=== PATIENT | male | born 1945 | race Caucasian/White ===

== ENCOUNTER 2019-07-01 10:49 | Inpatient (IN) | payer MEDICARE ==
[2019-07-01 12:10] VITALS: BP 122/71
[2019-07-01] MEDS ORDERED: ALBUTEROL SULFATE 2.5 MG/3 ML NEBU. NEB PRN (12:45)
[2019-07-01] MEDS ORDERED: methylPREDNISolone SOD SUCC PF 125 MG/2 ML VIAL. IV ONE (13:00)
--- NOTE | 2019-07-01 13:26 | HP ---
ADMIT DATE: 07/01/2019 CHIEF COMPLAINT AND HISTORY OF PRESENT ILLNESS: This 73-year-old white male is well known to me in followup in the office. The patient has been sick since last Monday. It involves a cough. He has become progressively more short of breath with minimal mucus, was seen in urgent care last , was given a Z-DEAN and prednisone, has not improved at all, has been working hard to breathe all weekend, on several occasions not sure he would get his breath at all. He was seen in the office. He was using accessory muscles of respiration, was tachypneic, diffusely wheezy with poor air exchange and the patient was admitted for failed outpatient treatment of COPD. PAST MEDICAL HISTORY: Remarkable for diverticulitis with recent resection of colon for the same. He does have a history of COPD. He has BPH, hyperlipidemia with INTOLERANCE TO STATINS, for which he takes for Repatha, has a history of some anxiety, hypertension, history of coronary artery disease, some depression. MEDICATIONS: Brought with the patient, listed on the computer and have been addressed. ALLERGIES: HE IS ALLERGIC TO SULFA AND TETRACYCLINE. SOCIAL HISTORY: He has been a smoker, does not abuse alcohol or drugs. , lives at home with his . FAMILY HISTORY: Noncontributory. REVIEW OF SYSTEMS: Remarkable for the cough, fevers, chills, shortness of breath, weakness, anorexia. PHYSICAL EXAMINATION: GENERAL: He is a well-developed, well-nourished white male, who appears short of breath at rest. VITAL SIGNS: Stable. He is afebrile. He is satting at 93%, but breathing at a rate in the 20s and using accessory muscles of respirations. CHEST: Reveals decreased breath sounds bilaterally with diffuse wheezing. HEART: Slightly tachycardic, regular. ABDOMEN: Soft, nontender, without hepatosplenomegaly or masses. EXTREMITIES: Without cyanosis, clubbing, edema. NEUROLOGIC: He is intact. IMPRESSION: Exacerbation of chronic obstructive pulmonary disease with failed outpatient treatment. PLAN: The patient has been admitted. He will be treated with IV fluids, IV antibiotics, pulmonary toilet, IV steroids. Labs will be checked. Pulmonary will be consulted and the patient will be monitored, managed and treated appropriately. CHRISTIANE CLEVELAND MD DR: Fish JOB#: [id number] / [id number]
[2019-07-01] MEDS: IV 1/2 NORMAL SALINE 1,000 ML IV SCH (13:32)
[2019-07-01] MEDS: cefTRIAXone IV Push 1 GM VIAL. IVP SCH (13:37)
[2019-07-01] MEDS: AZITHROMYCIN 500 MG in IV NORMAL SALINE 250ML 250 ML IV SCH (13:38)
--- NOTE | 2019-07-01 14:10 | RAD ---
CHEST AP ONLY Clinical Indication: COPD exacerbation Comparison: None. Findings: Portable upright frontal view of the chest was obtained. The cardiomediastinal silhouette is normal. No dense consolidation. Subtle nodular interstitial thickening of the lung [place] noted and may be chronic. There is no pneumothorax. No pleural effusion is appreciated. Minimal left costophrenic angle blunting is nonspecific. No acute bone abnormality. IMPRESSION: No definite acute cardiopulmonary process. Electronically signed by: Thomas Chung MD (07/01/2019 2:07 PM) [facility]
[2019-07-01 14:32] LABS: BASO % 0 % (0-3); EOS % 0 % (0-3); HEMATOCRIT 41.6 % (39.0-53.0); HEMOGLOBIN 14.2 g/dL (13.0-17.5); LYMPH % 14 % (24-48); MEAN CORPUSCULAR HEMOGLOBIN 31 pg (25-35); MEAN CORPUSCULAR HGB CONC 34 g/dL (31-37); MEAN CORPUSCULAR VOLUME 92 fL (79-100); MONO # 0.5 x10^3/uL (0.0-1.1); MONO % 4 % (0-9); NEUT # 11.2 x10^3/uL (1.8-7.7); NEUT % 82 % (31-73); PLATELET COUNT 296 x10^3/uL (140-400); RED BLOOD COUNT 4.52 x10^6/uL (4.30-5.70); WHITE BLOOD COUNT 13.8 x10^3/uL (4.0-11.0)
[2019-07-01 14:49] LABS: ALBUMIN 3.6 g/dL (3.4-5.0); CALCIUM 9.2 mg/dL (8.5-10.1); CREATININE 1.1 mg/dL (0.7-1.3); GFR 65.8; TOTAL BILIRUBIN 0.5 mg/dL (0.2-1.0); TOTAL PROTEIN 7.2 g/dL (6.4-8.2)
[2019-07-01 14:51] LABS: POTASSIUM 5.3 mmol/L (3.5-5.1)
[2019-07-01 14:53] VITALS: BP 129/59
[2019-07-01] MEDS ORDERED: TAMS0.4C97 PO (16:10)
[2019-07-01] MEDS ORDERED: AMLO5TAB10 PO (16:10)
[2019-07-01] MEDS ORDERED: EZET10TA20 PO (16:10)
[2019-07-01] MEDS ORDERED: CARV25TA2 PO (16:10)
[2019-07-01] MEDS ORDERED: CLOP75TA PO (16:10)
[2019-07-01] MEDS ORDERED: FOLI1TAB16 PO (16:10)
[2019-07-01] MEDS ORDERED: EVOL140S SQ (16:10)
[2019-07-01] MEDS ORDERED: TRAZ-118 PO (16:10)
[2019-07-01] MEDS ORDERED: ASPI325T8 PO (16:10)
[2019-07-01] MEDS ORDERED: SERT50TA8 PO (16:10)
[2019-07-01] MEDS ORDERED: OMEG1CAP6 PO (16:11)
[2019-07-01] MEDS ORDERED: ACET600C3 PO (16:11)
[2019-07-01] MEDS: CARVEDILOL 12.5 MG TABLET. PO SCH (17:00)
[2019-07-01] MEDS: methylPREDNISolone SOD SUCC PF 40 MG/ML VIAL. IV SCH ×2 (17:11→21:37)
[2019-07-01] MEDS: ALBUTEROL SULFATE 2.5 MG/3 ML NEBU. NEB SCH (19:46)
[2019-07-01 19:51] VITALS: BP 124/59
[2019-07-01] MEDS ORDERED: traZODone 50 MG TABLET. PO SCH (21:00)
[2019-07-01] MEDS ORDERED: traZODone 50 MG TABLET. PO ONE (22:00)
[2019-07-01 23:12] VITALS: BP 129/59
[2019-07-02] MEDS: IV 1/2 NORMAL SALINE 1,000 ML IV SCH ×2 (03:21→18:04)
[2019-07-02 03:46] VITALS: BP 140/67
[2019-07-02] MEDS: methylPREDNISolone SOD SUCC PF 40 MG/ML VIAL. IV SCH ×3 (06:20→21:01)
[2019-07-02 07:00] VITALS: BP 142/59
[2019-07-02] MEDS: ALBUTEROL SULFATE 2.5 MG/3 ML NEBU. NEB SCH (07:42)
[2019-07-02] MEDS: CARVEDILOL 12.5 MG TABLET. PO SCH ×2 (08:00→17:00)
[2019-07-02] MEDS ORDERED: OMEGA-3 FATTY ACIDS/FISH OIL 1,000 MG CAPSULE. PO SCH (09:00)
[2019-07-02] MEDS ORDERED: TAMSULOSIN 0.4 MG CAP.ER.24H. PO SCH (09:00)
[2019-07-02] MEDS ORDERED: SERTRALINE 50 MG TABLET. PO SCH (09:00)
[2019-07-02] MEDS ORDERED: amLODIPine BESYLATE 5 MG TABLET PO SCH (09:00)
[2019-07-02] MEDS ORDERED: EZETIMIBE 10 MG TABLET. PO SCH (09:00)
[2019-07-02] MEDS ORDERED: CLOPIDOGREL BISULFATE 75 MG TABLET PO SCH (09:00)
[2019-07-02] MEDS ORDERED: ACETYLCYSTEINE PO SCH (09:00)
[2019-07-02] MEDS: FOLIC ACID 1 MG TABLET. PO SCH (09:23)
[2019-07-02] MEDS: ASPIRIN 325 MG TABLET PO SCH (09:23)
--- NOTE | 2019-07-02 09:44 | CONS ---
DATE OF CONSULTATION: PULMONARY CONSULTATION ATTENDING PHYSICIAN: Dr. Soares REASON FOR CONSULTATION: Dyspnea. HISTORY OF PRESENT ILLNESS: The patient is a 73-year-old, who has a tobacco use for about 55 years. He presented to the hospital with complaint of shortness of breath, this started on Monday, went to urgent care on , was given Z-DEAN and prednisone, but he did not improve and continued to have increasing shortness of breath. He was brought into the Emergency Room after he was seen in the office and was using accessory muscles of respiration, he was tachypneic and diffusely wheezing. The patient has been hospitalized. He is mildly better. He has a cough, which has been dry. No fever, no chills, no chest pains, no headaches, no nausea, vomiting, no diarrhea. He said he has some weight loss after his abdominal surgery for diverticulitis. The patient still smokes 1 pack per day. His chest x-ray did not reveal any acute infiltrates. There was evidence of emphysema. PAST MEDICAL HISTORY: Significant for history of diverticulitis with recent resection of colon for the same reason, history of COPD, history of BPH, hyperlipidemia, history of anxiety, hypertension, coronary artery disease, and depression. PAST SURGICAL HISTORY: No recent surgery. ALLERGIES: SULFA AND TETRACYCLINE. SOCIAL HISTORY: Smoker for 55 years, still smokes a pack a day. FAMILY HISTORY: Noncontributory to lungs. REVIEW OF SYSTEMS: Twelve-point system obtained. Pertinent positives discussed in my present illness, otherwise noncontributory. All systems that were negative were reviewed as well. MEDICATIONS: All reviewed as listed in the MRAD. PHYSICAL EXAMINATION: VITAL SIGNS: Reviewed. Blood pressure is stable, pulse ox 90% on 2 liters, afebrile. HEENT: Sclerae nonicteric. NECK: Supple. LUNGS: With few wheezes posteriorly. CARDIOVASCULAR: Regular rate. ABDOMEN: Soft. EXTREMITIES: With no pitting edema. LABORATORY DATA: Reviewed. White cell count 13.8, hemoglobin 14.2, platelets are 296. BUN 22, creatinine 1.1. IMPRESSION: 1. Dyspnea with acute hypoxic respiratory failure secondary to acute exacerbation of chronic obstructive pulmonary disease and acute bronchitis. 2. Acute bronchitis. 3. A 55 years of tobacco use, suspect severe chronic obstructive pulmonary disease. The patient still smokes a pack a day. RECOMMENDATIONS: 1. Smoking cessation counseling provided. He wants to try quitting cigarettes. 2. Add DuoNeb instead of just albuterol only. 4. Add Pulmicort. 5. IV Solu-Medrol with gradual taper. 6. Continue present antibiotic azithromycin. 7. PFTs as an outpatient. 8. Wean off oxygen. 9. Discussed with RN. DEANGELO PARKER MD DR: LAKSHMI/laney JOB#: [id number] / [id number]
[2019-07-02 10:54] VITALS: BP 135/59
[2019-07-02] MEDS: IPRATRPIUM/ALBUTEROL 0.5/2.5MG 3 ML NEBU. NEB SCH ×3 (11:31→19:58)
[2019-07-02] MEDS: AZITHROMYCIN 500 MG in IV NORMAL SALINE 250ML 250 ML IV SCH (12:32)
[2019-07-02] MEDS: cefTRIAXone IV Push 1 GM VIAL. IVP SCH (12:33)
[2019-07-02] MEDS ORDERED: POLYETHYLENE GLYCOL 3350 17 GM PACKET. ONE (14:42)
[2019-07-02 14:44] VITALS: BP 125/59
[2019-07-02] MEDS: POLYETHYLENE GLYCOL 3350 17 GM PACKET. PO SCH (14:48)
[2019-07-02] MEDS ORDERED: LACTULOSE 20 GM/30 ML SOLUTION. PO PRN (15:15)
--- NOTE | 2019-07-02 18:02 | PDOC ---
GENERAL General: vss and afebrile. awake and alert and minimal improvement in sob to date. chest with decreased breath sounds and diffuse expiratory wheezes, heart regular, abdomen benign, O2 sats ok. pulmonology help appreciated. cxr without acute disease. WBC 13.8K with left shift on admission and iv antibiotics ongoing. continue present. VITAL SIGNS/I&O Vital Signs/I&O: Vital Signs Date Time Temp Pulse Resp B/P (MAP) Pulse Ox O2 Delivery O2 Flow Rate FiO2 07/02/19 15:24 93 Room Air 07/02/19 14:44 97.9 61 17 125/59 (81) 97.9 07/02/19 08:00 2.0 I & O 07/01/19 07/01/19 07/02/19 15:00 23:00 07:00 Intake Total 360 ml 250 ml Balance 360 ml 250 ml ALLERGIES Allergies: Allergies Coded Allergies Type Severity Reaction Last Updated Verified Sulfa (Sulfonamide Antibiotics) Allergy Mild 07/01/19 Yes Tetracyclines Allergy Mild 07/01/19 Yes MEDS Medications: Current Medications Medications (Trade) Dose Ordered Sig/Peyton Route PRN Reason Start Time Stop Time Status Last Admin Dose Admin Aspirin (Laney Aspirin) 325 mg DAILY PO 07/02/19 09:00 07/02/19 09:26 Folic Acid (Folic Acid) 1 mg DAILY PO 07/02/19 09:00 07/02/19 09:26 Trazodone HCl (Desyrel) 50 mg HS PO 07/01/19 21:00 07/02/19 06:55 DC 07/01/19 21:38 Albuterol Sulfate (Ventolin Neb Soln) 2.5 mg RTQID NEB 07/01/19 20:00 07/02/19 09:31 DC 07/02/19 07:42 Trazodone HCl (Desyrel) 25 mg 1X ONCE PO 07/01/19 22:00 07/01/19 22:01 DC 07/01/19 22:04 Albuterol/ Ipratropium (Duoneb) 3 ml RTQID NEB 07/02/19 12:00 07/02/19 15:23 Polyethylene Glycol (miraLAX PACKET) 17 gm DAILY PO 07/03/19 09:00 07/02/19 14:48 CHRISTIANE CLEVELAND MD Jul 02, 2019 18:02
[2019-07-02 19:50] VITALS: BP 141/93
[2019-07-02] MEDS: BUDESONIDE 0.5 MG/2 ML NEBU. NEB SCH (19:58)
[2019-07-02] MEDS ORDERED: LACTOBACILLUS RHAMNOSUS GG 1 CAPSULE. PO SCH (21:00)
[2019-07-02] MEDS: traZODone 50 MG TABLET. PO SCH (21:01)
[2019-07-02] MEDS: TAMSULOSIN 0.4 MG CAP.ER.24H. PO SCH (21:01)
[2019-07-02] MEDS: EZETIMIBE 10 MG TABLET. PO SCH (21:01)
[2019-07-02] MEDS: amLODIPine BESYLATE 5 MG TABLET PO SCH (21:02)
[2019-07-02] MEDS: LACTOBACILLUS RHAMNOSUS GG 1 CAPSULE. PO SCH (21:02)
[2019-07-02] MEDS: OMEGA-3 FATTY ACIDS/FISH OIL 1,000 MG CAPSULE. PO SCH (21:02)
[2019-07-02] MEDS: CLOPIDOGREL BISULFATE 75 MG TABLET PO SCH (21:03)
[2019-07-02] MEDS: SERTRALINE 50 MG TABLET. PO SCH (21:03)
[2019-07-02 23:41] VITALS: BP 132/91
[2019-07-03] MEDS: IV 1/2 NORMAL SALINE 1,000 ML IV SCH ×2 (04:45→13:39)
[2019-07-03 07:00] VITALS: BP 139/66
[2019-07-03] MEDS: methylPREDNISolone SOD SUCC PF 40 MG/ML VIAL. IV SCH ×3 (07:03→20:49)
[2019-07-03] MEDS: IPRATRPIUM/ALBUTEROL 0.5/2.5MG 3 ML NEBU. NEB SCH ×4 (07:53→19:34)
[2019-07-03] MEDS: BUDESONIDE 0.5 MG/2 ML NEBU. NEB SCH ×2 (07:53→19:34)
[2019-07-03] MEDS ORDERED: PSYL660P18 PO (08:05)
[2019-07-03] MEDS: LACTOBACILLUS RHAMNOSUS GG 1 CAPSULE. PO SCH ×2 (08:39→20:37)
[2019-07-03] MEDS: PSYLLIUM HUSK (SUGAR FREE) 1 PKT PACKET PO SCH ×2 (08:39→20:37)
[2019-07-03] MEDS: CARVEDILOL 12.5 MG TABLET. PO SCH ×2 (08:39→16:39)
[2019-07-03] MEDS: ASPIRIN 325 MG TABLET PO SCH (08:39)
[2019-07-03] MEDS: FOLIC ACID 1 MG TABLET. PO SCH (08:39)
--- NOTE | 2019-07-03 10:09 | PDOC ---
PULMONARY PROGRESS NOTES Subjective NO SOA Vitals Vital Signs Date Time Temp Pulse Resp B/P (MAP) Pulse Ox O2 Delivery O2 Flow Rate FiO2 07/03/19 08:39 61 139/66 07/03/19 08:00 Room Air 07/03/19 07:56 90 07/03/19 07:00 98.4 17 98.4 07/02/19 20:00 2.0 General: Alert, No acute distress Lungs: Clear Cardiovascular: S1 Abdomen: Soft Neuro Exam: Alert Extremities: No Edema Skin: Warm Labs Laboratory Tests Test 07/01/19 14:24 White Blood Count 13.8 x10^3/uL (4.0-11.0) Red Blood Count 4.52 x10^6/uL (4.30-5.70) Hemoglobin 14.2 g/dL (13.0-17.5) Hematocrit 41.6 % (39.0-53.0) Mean Corpuscular Volume 92 fL (79-100) Mean Corpuscular Hemoglobin 31 pg (25-35) Mean Corpuscular Hemoglobin Concent 34 g/dL (31-37) Red Cell Distribution Width 13.0 % (11.5-14.5) Platelet Count 296 x10^3/uL (140-400) Neutrophils (%) (Auto) 82 % (31-73) Lymphocytes (%) (Auto) 14 % (24-48) Monocytes (%) (Auto) 4 % (0-9) Eosinophils (%) (Auto) 0 % (0-3) Basophils (%) (Auto) 0 % (0-3) Neutrophils # (Auto) 11.2 x10^3/uL (1.8-7.7) Lymphocytes # (Auto) 2.0 x10^3/uL (1.0-4.8) Monocytes # (Auto) 0.5 x10^3/uL (0.0-1.1) Eosinophils # (Auto) 0.0 x10^3/uL (0.0-0.7) Basophils # (Auto) 0.0 x10^3/uL (0.0-0.2) Sodium Level 134 mmol/L (136-145) Potassium Level 5.3 mmol/L (3.5-5.1) Chloride Level 98 mmol/L (98-107) Carbon Dioxide Level 30 mmol/L (21-32) Anion Gap 6 (6-14) Blood Urea Nitrogen 22 mg/dL (8-26) Creatinine 1.1 mg/dL (0.7-1.3) Estimated GFR (Cockcroft-Gault) 65.8 BUN/Creatinine Ratio 20 (6-20) Glucose Level 133 mg/dL (70-99) Calcium Level 9.2 mg/dL (8.5-10.1) Total Bilirubin 0.5 mg/dL (0.2-1.0) Aspartate Amino Transf (AST/SGOT) 29 U/L (15-37) Alanine Aminotransferase (ALT/SGPT) 28 U/L (16-63) Alkaline Phosphatase 81 U/L (46-116) Total Protein 7.2 g/dL (6.4-8.2) Albumin 3.6 g/dL (3.4-5.0) Albumin/Globulin Ratio 1.0 (1.0-1.7) Medications Active Scripts Medications Dose Route/Sig Max Daily Dose Days Date Category Dose Instructions Metamucil (Psyllium Husk) 660 Gm Powder 660 Gm PO BID 07/03/19 Reported U-Alodva-Z-Cysteine (Acetylcysteine) 600 Mg Capsule 750 Mg PO DAILY 07/01/19 Reported Fish Oil 1,000 Mg Capsule ([place]-3 Fatty Acids/Fish Oil) 1 Each Capsule 1 Each PO HS 07/01/19 Reported Aspirin 325 Mg Tablet 1 Tab PO DAILY 07/01/19 Reported Folic Acid 1 Mg Tablet 1 Tab PO DAILY 07/01/19 Reported Trazodone Hcl 50 Mg Tablet 75 Mg PO HS 07/01/19 Reported pt states he takes 75mg at night, prescription bottle states 1-2 tabs at bedtime. Flomax (Tamsulosin Hcl) 0.4 Mg Cap.er.24h 0.4 Mg PO HS 07/01/19 Reported Sertraline Hcl 50 Mg Tablet 50 Mg PO HS 07/01/19 Reported Amlodipine Besylate 5 Mg Tablet 5 Mg PO HS 07/01/19 Reported Zetia (Ezetimibe) 10 Mg Tablet 10 Mg PO HS 07/01/19 Reported Clopidogrel (Clopidogrel Bisulfate) 75 Mg Tablet 75 Mg PO HS 07/01/19 Reported Carvedilol 25 Mg Tablet 25 Mg PO BIDWMEALS 07/01/19 Reported Repatha Syringe (Evolocumab) 140 Mg/1 Ml Syringe 140 Mg SQ Q2WKS 07/01/19 Reported Impression . 1. Dyspnea with acute hypoxic respiratory failure secondary to acute exacerbation of chronic obstructive pulmonary disease and acute bronchitis. 2. Acute bronchitis. 3. A 55 years of tobacco use, suspect severe chronic obstructive pulmonary disease. The patient still smokes a pack a day. Plan . 1. Smoking cessation counseling provided. He wants to try quitting cigarettes. 2. DuoNeb instead of just albuterol only. 4. Pulmicort. 5. IV Solu-Medrol with gradual taper. 6. Continue present antibiotic azithromycin. 7. PFTs as an outpatient. 8. Wean off oxygen. 9. Discussed with RN./ POSSIBLE DC IN DEANGELO BOLIVAR MD Jul 03, 2019 10:09
[2019-07-03 10:46] VITALS: BP 139/80
[2019-07-03] MEDS: cefTRIAXone IV Push 1 GM VIAL. IVP SCH (13:38)
[2019-07-03] MEDS: AZITHROMYCIN 500 MG in IV NORMAL SALINE 250ML 250 ML IV SCH (13:39)
[2019-07-03 15:15] VITALS: BP 136/64
--- NOTE | 2019-07-03 18:37 | PDOC ---
GENERAL General: vss and afebrile. some better this am. chest with better air movement and less wheezes, heart regular, abdomen benign. continue present care and await clearing. pulmonary help appreciated. VITAL SIGNS/I&O Vital Signs/I&O: Vital Signs Date Time Temp Pulse Resp B/P (MAP) Pulse Ox O2 Delivery O2 Flow Rate FiO2 07/03/19 16:39 71 136/64 07/03/19 15:43 92 Room Air 07/03/19 15:15 97.8 16 97.8 07/02/19 20:00 2.0 I & O 07/02/19 07/02/19 07/03/19 15:00 23:00 07:00 Intake Total 600 ml 550 ml 100 ml Balance 600 ml 550 ml 100 ml ALLERGIES Allergies: Allergies Coded Allergies Type Severity Reaction Last Updated Verified Sulfa (Sulfonamide Antibiotics) Allergy Mild 07/01/19 Yes Tetracyclines Allergy Mild 07/01/19 Yes MEDS Medications: Current Medications Medications (Trade) Dose Ordered Sig/Peyton Route PRN Reason Start Time Stop Time Status Last Admin Dose Admin Amlodipine Besylate (Norvasc) 5 mg HS PO 07/02/19 21:00 07/02/19 21:04 Clopidogrel Bisulfate (Plavix) 75 mg HS PO 07/02/19 21:00 07/02/19 21:04 EZETIMIBE (Zetia) 10 mg HS PO 07/02/19 21:00 07/02/19 21:04 Fish Oil (Fish Oil) 1,000 mg HS PO 07/02/19 21:00 07/02/19 21:04 Sertraline HCl (Zoloft) 50 mg HS PO 07/02/19 21:00 07/02/19 21:04 Tamsulosin HCl (Flomax) 0.4 mg HS PO 07/02/19 21:00 07/02/19 21:03 Trazodone HCl (Desyrel) 75 mg HS PO 07/02/19 21:00 07/02/19 21:03 Budesonide (Pulmicort) 0.5 mg RTBID NEB 07/02/19 20:00 07/03/19 07:54 Lactobacillus Rhamnosus (Culturelle) 1 cap BID PO 07/02/19 21:00 07/03/19 08:39 Polyethylene Glycol (miraLAX PACKET) 17 gm DAILY PO 07/03/19 09:00 07/02/19 14:48 Psyllium Hydrophilic Mucilloid (Metamucil Fiber Packet) 1 pkt BID PO 07/03/19 09:00 07/03/19 08:39 CHRISTIANE CLEVELAND MD Jul 03, 2019 18:36
[2019-07-03 19:47] VITALS: BP 158/59
[2019-07-03] MEDS: amLODIPine BESYLATE 5 MG TABLET PO SCH (20:37)
[2019-07-03] MEDS: EZETIMIBE 10 MG TABLET. PO SCH (20:37)
[2019-07-03] MEDS: CLOPIDOGREL BISULFATE 75 MG TABLET PO SCH (20:37)
[2019-07-03] MEDS: SERTRALINE 50 MG TABLET. PO SCH (20:37)
[2019-07-03] MEDS: OMEGA-3 FATTY ACIDS/FISH OIL 1,000 MG CAPSULE. PO SCH (20:37)
[2019-07-03] MEDS: TAMSULOSIN 0.4 MG CAP.ER.24H. PO SCH (20:37)
[2019-07-03] MEDS: traZODone 50 MG TABLET. PO SCH (20:38)
[2019-07-03] MEDS: CEFDINIR 300 MG CAPSULE PO SCH (20:42)
[2019-07-03 23:18] VITALS: BP 141/66
[2019-07-04 03:13] VITALS: BP 135/87
[2019-07-04] MEDS: methylPREDNISolone SOD SUCC PF 40 MG/ML VIAL. IV SCH (05:30)
[2019-07-04] MEDS: IV 1/2 NORMAL SALINE 1,000 ML IV SCH (05:34)
[2019-07-04 07:00] VITALS: BP 119/62
[2019-07-04] MEDS: BUDESONIDE 0.5 MG/2 ML NEBU. NEB SCH (07:18)
[2019-07-04] MEDS: IPRATRPIUM/ALBUTEROL 0.5/2.5MG 3 ML NEBU. NEB SCH ×3 (07:19→15:27)
[2019-07-04] MEDS: CEFDINIR 300 MG CAPSULE PO SCH (08:21)
[2019-07-04] MEDS: ASPIRIN 325 MG TABLET PO SCH (08:21)
[2019-07-04] MEDS: CARVEDILOL 12.5 MG TABLET. PO SCH (08:21)
[2019-07-04] MEDS: FOLIC ACID 1 MG TABLET. PO SCH (08:22)
[2019-07-04] MEDS: LACTOBACILLUS RHAMNOSUS GG 1 CAPSULE. PO SCH (08:22)
[2019-07-04] MEDS ORDERED: AZITHROMYCIN 250 MG TABLET. PO SCH (09:00)
[2019-07-04] MEDS: PSYLLIUM HUSK (SUGAR FREE) 1 PKT PACKET PO SCH (10:27)
[2019-07-04] MEDS: POLYETHYLENE GLYCOL 3350 17 GM PACKET. PO SCH (10:27)
[2019-07-04 11:00] VITALS: BP 121/77
--- NOTE | 2019-07-04 12:46 | PDOC ---
PULMONARY PROGRESS NOTES Subjective NO SOA Vitals Vital Signs Date Time Temp Pulse Resp B/P (MAP) Pulse Ox O2 Delivery O2 Flow Rate FiO2 07/04/19 11:09 Room Air 07/04/19 11:00 98.3 71 16 121/77 (92) 93 98.3 07/03/19 19:47 2.0 General: Alert, No acute distress Lungs: Clear Cardiovascular: S1 Abdomen: Soft Neuro Exam: Alert Extremities: No Edema Skin: Warm Medications Active Scripts Medications Dose Route/Sig Max Daily Dose Days Date Category Dose Instructions Metamucil (Psyllium Husk) 660 Gm Powder 660 Gm PO BID 07/03/19 Reported O-Kyinpr-B-Cysteine (Acetylcysteine) 600 Mg Capsule 750 Mg PO DAILY 07/01/19 Reported Fish Oil 1,000 Mg Capsule ([place]-3 Fatty Acids/Fish Oil) 1 Each Capsule 1 Each PO HS 07/01/19 Reported Aspirin 325 Mg Tablet 1 Tab PO DAILY 07/01/19 Reported Folic Acid 1 Mg Tablet 1 Tab PO DAILY 07/01/19 Reported Trazodone Hcl 50 Mg Tablet 75 Mg PO HS 07/01/19 Reported pt states he takes 75mg at night, prescription bottle states 1-2 tabs at bedtime. Flomax (Tamsulosin Hcl) 0.4 Mg Cap.er.24h 0.4 Mg PO HS 07/01/19 Reported Sertraline Hcl 50 Mg Tablet 50 Mg PO HS 07/01/19 Reported Amlodipine Besylate 5 Mg Tablet 5 Mg PO HS 07/01/19 Reported Zetia (Ezetimibe) 10 Mg Tablet 10 Mg PO HS 07/01/19 Reported Clopidogrel (Clopidogrel Bisulfate) 75 Mg Tablet 75 Mg PO HS 07/01/19 Reported Carvedilol 25 Mg Tablet 25 Mg PO BIDWMEALS 07/01/19 Reported Repatha Syringe (Evolocumab) 140 Mg/1 Ml Syringe 140 Mg SQ Q2WKS 07/01/19 Reported Impression . 1. Dyspnea with acute hypoxic respiratory failure secondary to acute exacerbation of chronic obstructive pulmonary disease and acute bronchitis. 2. Acute bronchitis. 3. A 55 years of tobacco use, suspect severe chronic obstructive pulmonary disease. The patient still smokes a pack a day. Plan . 1. Smoking cessation counseling provided. He wants to try quitting cigarettes. 2. DuoNeb 4. Pulmicort. 5. change to po steroid taper 6. Continue present antibiotic azithromycin. 7. PFTs as an outpatient. 8. Wean off oxygen. 9. Discussed with RN./ DC home today DEANGELO PARKER MD Jul 04, 2019 12:46
--- NOTE | 2019-07-04 13:18 | DS ---
DATE OF DISCHARGE: 07/04/2019 PRIMARY DIAGNOSES: Exacerbation of chronic obstructive pulmonary disease with bronchitis and shortness of breath. ADDITIONAL DIAGNOSES: Hyperlipidemia, benign prostatic hyperplasia, coronary artery disease, hypertension. CHIEF COMPLAINT AND HISTORY OF PRESENT ILLNESS: This is a 73-year-old white male well known to me from followup in the office. The patient had been sick since Monday prior cough. He became progressively more short of breath with minimal mucus, seen in urgent care last , given a Z-DEAN and prednisone, but not improved at all, had been working very hard to breathe get his breath at all. He was seen in the office on the day of admission using accessory muscles of respiration, was tachypneic, diffusely wheezy with poor air exchange, failed outpatient treatment of COPD. SUMMARY OF STAY: The patient was admitted and treated with IV antibiotics, IV fluids, pulmonary toilet, IV steroids, but gradual improvement back to his baseline by the day of discharge. Pulmonary was going to send him on p.o. steroid taper and antibiotics for a few more days at the time of discharge, but I am not sure what those at the time of this dictation. DISPOSITION: The patient is discharged to home. DIET: Regular. ACTIVITY: As tolerated, office in 2 weeks. DISCHARGE MEDICATIONS: Listed on the med rec and have been addressed. CHRISTIANE CLEVELAND MD DR: FABRIZIO/laney JOB#: [id number] / [id number]
[2019-07-04] MEDS ORDERED: AZIT250T6 PO (14:39)
[2019-07-04] MEDS ORDERED: PRED-220 PO (14:39)
[2019-07-05] MEDS ORDERED: predniSONE 10 MG TABLET PO SCH (09:00)
[2019-07-15] MEDS ORDERED: NON FORMULARY ITEM (Evolocumab (Repatha Syringe) 140 MG) SQ SCH (09:00)
== END 2019-07-04 15:43 | disposition home or self-care (01) | DRG 189 ==
LOC: 6 SOUTH 11:39
PROVIDERS: ADMIT Family Medicine; ATTEND Family Medicine
DX: J96.01 Acute respiratory failure with hypoxia (principal); J20.9 Acute bronchitis, unspecified; J43.9 Emphysema, unspecified; F41.9 Anxiety disorder, unspecified; N40.0 Benign prostatic hyperplasia without lower urinary tract symptoms; E78.5 Hyperlipidemia, unspecified; F17.210 Nicotine dependence, cigarettes, uncomplicated; I10 Essential (primary) hypertension; I25.10 Atherosclerotic heart disease of native coronary artery without angina pectoris; Z71.6 Tobacco abuse counseling
CPT/HCPCS: 36415; 71045; 80053; 85025; 94640; 94760; J0456; J0696; J2920; J2930; J7050; J7613; J7620; J7626; Q0144; G0378; J7030

== ENCOUNTER → 2021-05-13 | Outpatient (CLI) | payer MEDICARE ==
[~2021-05-13] MED LIST: ACET600C3 PO; AMLO-186 PO; ASPI325T8 PO; AZIT250T6 PO; CARV25TA2 PO; CLOP75TA PO; EVOL140S2 SQ; EZET10TA20 PO; FOLI1TAB16 PO; OMEG1CAP6 PO; PRED-220 PO; PSYL660P18 PO; SERT-267 PO; TAMS0.4C97 PO; TRAZ-118 PO
[2021-05-13 13:26] LABS: BASO # 0.1 x10^3/uL (0.0-0.2); BASO % 1 % (0-3); EOS # 0.2 x10^3/uL (0.0-0.7); EOS % 2 % (0-3); HEMOGLOBIN 14.6 g/dL (13.0-17.5); LYMPH # 2.6 x10^3/uL (1.0-4.8); LYMPH % 26 % (24-48); MEAN CORPUSCULAR HEMOGLOBIN 32 pg (25-35); MEAN CORPUSCULAR HGB CONC 34 g/dL (31-37); MEAN CORPUSCULAR VOLUME 94 fL (79-100); MONO # 0.9 x10^3/uL (0.0-1.1); MONO % 9 % (0-9); NEUT # 6.3 x10^3/uL (1.8-7.7); NEUT % 62 % (31-73); PLATELET COUNT 297 x10^3/uL (140-400); RED BLOOD COUNT 4.57 x10^6/uL (4.30-5.70); RED CELL DISTRIBUTION WIDTH 13.2 % (11.5-14.5); WHITE BLOOD COUNT 10.1 x10^3/uL (4.0-11.0)
[2021-05-13 13:34] LABS: ALBUMIN 3.4 g/dL (3.4-5.0); C-REACTIVE PROTEIN 1.3 mg/L (0-3.3); CALCIUM 8.8 mg/dL (8.5-10.1); CREATININE 1.1 mg/dL (0.7-1.3); GFR 65.4; POTASSIUM 3.9 mmol/L (3.5-5.1); TOTAL BILIRUBIN 0.6 mg/dL (0.2-1.0); TOTAL PROTEIN 6.7 g/dL (6.4-8.2)
== END ==
LOC: LAB 12:58
PROVIDERS: ATTEND Internal Medicine Gastroenterology
DX: R63.4 Abnormal weight loss (principal)
CPT/HCPCS: 36415; 80053; 84443; 85025; 86140

== ENCOUNTER → 2021-05-19 | Outpatient (CLI) | payer MEDICARE ==
[~2021-05-19] MED LIST changes: +IOHEXOL 240 MG/ML 50ML VIAL. PO ONE; +IOHEXOL 300 MG/ML 100ML VIAL. IV ONE
--- NOTE | 2021-05-19 15:12 | KCIC ---
INDICATION: Reason: Weight loss. Diarrhea. / Spl. Instructions: 90mL Omni 300 / History: Diarrhea 3 m onths, hx.diverticulitis w/colon resection,GB and appy removed.. COMPARISON: None. TECHNIQUE: Axial CT images obtained through the abdomen and pelvis with contrast. One or more of the following individualized dose reduction techniques were utilized for this examinat ion: 1. Automated exposure control; 2. Adjustment of the mA and/or kV according to patient size; 3 . Use of iterative reconstruction technique. FINDINGS: multifocal plaque throughout the vasculature. This includes both hard and soft plaque. Ectasia infrarenal abdominal aorta measuring up to 30 mm. Postcholecystectomy changes. Prominence of intrahepatic bile ducts which is commonly seen postoperati vely. Focus of low density within the right lobe the liver medially measuring up to 18 mm. No peripancreatic fluid collection. Spleen unremarkable. Prominence of the bilateral extrarenal pelvis. Urinary bladder wall appears thickened. Prostate enlarged. No dilated loops of bowel to suggest obstruction. The patient has a reported history of appendectomy. Postoperative appearance of the bowel. Suspected left lower rib fracture at the left eighth rib. Degenerative changes the spine with multilevel central canal and neural foraminal stenosis. Osseous demineralization. IMPRESSION: * No evidence of bowel obstruction. * Focus of low density within the right lobe the liver. This could be secondary to causes such as fo sandy fatty infiltration but a liver mass is not excluded and if further evaluation is desired liver pr otocol MRI could further assess. * Left eighth rib fracture * Severe calcific atherosclerosis. * There is some mild thickening of the wall the urinary bladder. Could be related to causes such as chronic partial bladder outlet obstruction from enlarged prostate but would correlate with symptoms a nd lab markers to ensure there is not a pathologic cause such as a mass or cystitis Electronically signed by: Melquiades Fischer MD (05/19/2021 3:10 PM) [id number]
--- NOTE | 2021-05-19 17:06 | KCIC ---
XR CHEST 2V History: Reason: Weight loss, SOA, COPD, smoker 55 yrs., 1pk/day. / Spl. Instructions: / History: Comparison: July 01, 2019 Findings: Hyperinflation with emphysematous changes. No consolidation or pleural effusion. No pneumothorax. Impression: 1. Hyperinflation with emphysematous changes. No new consolidation. Electronically signed by: Paras Matthews DO (05/19/2021 5:04 PM) [id number]
== END ==
LOC: KCIC CT 13:06
PROVIDERS: ATTEND Internal Medicine Gastroenterology
DX: J43.9 Emphysema, unspecified (principal); J98.11 Atelectasis; K76.89 Other specified diseases of liver; I77.811 Abdominal aortic ectasia; I70.90 Unspecified atherosclerosis; M47.819 Spondylosis without myelopathy or radiculopathy, site unspecified; M48.00 Spinal stenosis, site unspecified; S22.32XA Fracture of one rib, left side, initial encounter for closed fracture; Z90.49 Acquired absence of other specified parts of digestive tract; X58.XXXA Exposure to other specified factors, initial encounter; Y93.89 Activity, other specified; Y92.89 Other specified places as the place of occurrence of the external cause; Y99.8 Other external cause status
CPT/HCPCS: 71046; 74177; Q9966; Q9967

== ENCOUNTER → 2021-06-18 | Outpatient (CLI) | payer MEDICARE ==
[~2021-06-18] MED LIST changes: +GADOTERATE 5 MMOL/10ML VIAL. IVP ONE; -IOHEXOL 240 MG/ML 50ML VIAL. PO ONE; -IOHEXOL 300 MG/ML 100ML VIAL. IV ONE
--- NOTE | 2021-06-18 17:18 | RAD ---
EXAMINATION: MRI abdomen without and with IV contrast. INDICATION: Hypoattenuating focus in the right hepatic lobe seen on previous CT exam. Further evaluat ion. Additional history, previous diverticulitis with colon resection. TECHNIQUE: Multiplanar multisequence MRI of the liver performed without and with IV contrast. COMPARISON: CT dated 05/19/2021. FINDINGS: Normal size and morphology of the liver with homogeneous enhancement. No steatosis or iron deposition . No suspicious focal hepatic lesion. No focal lesion corresponds to previously seen hypoattenuating focus in the medial right hepatic lobe. No abnormal diffusion within the liver. Cholecystectomy. Mild central intrahepatic and extrahepatic biliary ductal dilation, with smooth tape ring distally, likely secondary to postcholecystectomy status. The maximum diameter of the common joe e duct measures 0.8 cm. Unremarkable spleen. Mild loss of normal bright T1 signal intensity of the pa ncreas particularly in the body and tail, may reflect a sequelae of chronic pancreatitis. No focal pa ncreatic lesion or ductal dilatation. No adrenal nodule. No hydronephrosis in either kidney. Small si mple bilateral renal cysts with the largest in the upper pole right kidney measures 0.9 cm. Nonspecif ic bilateral perinephric fat stranding. No bowel dilatation. No lymphadenopathy in the abdomen or pelvis by size criteria. Normal caliber abd ominal aorta. Mesenteric arteries and portal vein are patent. No ascites. No suspicious osseous lesio n. Mild degenerative changes in the spine, worst at L5-S1. Unremarkable visualized lung bases. IMPRESSION: 1. No suspicious focal hepatic lesion corresponds to previously seen hypoattenuating focus in the med ial right hepatic lobe. Previous finding could be related to focal fat infiltration or perfusion lewis ges. 2. Other chronic/incidental findings, as described above. Electronically signed by: Basilio Humphrey MD (06/18/2021 5:15 PM) [id number]
== END ==
LOC: MRI 10:40
PROVIDERS: ATTEND Internal Medicine Gastroenterology
DX: N28.1 Cyst of kidney, acquired (principal); K83.8 Other specified diseases of biliary tract; M47.817 Spondylosis without myelopathy or radiculopathy, lumbosacral region; Z90.49 Acquired absence of other specified parts of digestive tract
CPT/HCPCS: 74183; A9575